=== PATIENT | female | born 1955 | race Caucasian/White ===

== ENCOUNTER 2017-03-08 10:58 | Inpatient (IN) | payer BC ==
--- NOTE | ~2017-03-08 | OP ---
Record Of Operation [facility] [address] [place]. [address] NAME: GIOVANI SANCHEZ : 57 STATUS : ADM IN [facility]#: [id number] AGE: 61 ADM/REG DATE : 03/08/17 MR#: [id number] REPORT SERV DATE: 03/12/17 DICTATED BY: TONY ARAUJO DATE: 03/11/17 REPORT STATUS : Draft TRANSCRIBED BY: MODÁlvaro DATE: 03/11/17 DATE OF PROCEDURE: 03/11/2017 PROCEDURE: Placement of right-sided chest tube. REASON: Pneumothorax postop. The patient is already intubated and sedated. Arrow Pneumothorax Kit was used for placement of a PneumoDart. DESCRIPTION OF PROCEDURE: The right chest was prepped and draped in sterile fashion at the level of rib 5 to 6. The interspace was then prepped and draped in sterile fashion. Lidocaine 1% was used as a local anesthetic, both through the skin and the pleura. A small incision was made. The PneumoDart was then inserted into the pleural space with immediate escape of air. It was advanced without difficulty. It was then connected to a one-way Heimlich valve. The tube was sewn in place with 2-0 silk. The Heimlich valve was then connected to a Pleur-Evac. Sterile gauze was then placed over the PneumoDart and it was taped in place. Chest x-ray after the procedure showed good placement and evacuation of pneumothorax. /NILSA Tony Araujo M.D. / [id number] CC: Galindo Smith MD
--- NOTE | ~2017-03-08 | OP ---
Record Of Operation [facility] [address] [place]. [address] NAME: GIOVANI IBARRA : 57 STATUS : ADM IN [facility]#: [id number] AGE: 61 ADM/REG DATE : 03/08/17 MR#: [id number] REPORT SERV DATE: 03/09/17 DICTATED BY: TY CASTREJON JR. DATE: 03/09/17 REPORT STATUS : Draft TRANSCRIBED BY: MODÁlvaro DATE: 03/09/17 DATE OF PROCEDURE: 03/08/2017 CHIEF COMPLAINT: Right ureteral obstruction secondary to a large ovarian mass. POSTOPERATIVE DIAGNOSIS: Right ureteral obstruction secondary to a large ovarian mass. PROCEDURE PERFORMED: Cystoscopy, urethral dilation, right retrograde pyelogram, placement of double-J stent. COMPLICATIONS: None. CONSULTATIONS: None. ANESTHESIA: General with laryngeal mask airway. SPECIMENS: None. DRAINS: 6 x 28 cm double-J stent. ESTIMATED BLOOD LOSS: None. INDICATION: Mrs. Ibarra is a 61-year-old female, who presented to the emergency room yesterday with findings of a large pelvic mass and weight loss. She has noted on CT scan to have a significant right ureteral obstruction. She comes today for double-J stent placement in preparations for exploratory laparoscopy or laparotomy tomorrow and debulking of this presumed ovarian malignancy. PROCEDURE IN DETAIL: After the patient was identified and proper informed consent was obtained, she was taken to the operating room. General anesthesia was performed without complication using a laryngeal mask airway. She was then prepped and draped in normal sterile fashion in the lithotomy position. Cystoscopic examination of the urethra was impossible due to the small size of the urethral meatus. I used female sounds to dilate the urethra to 24-Indonesian and then placed a 22-Indonesian cystoscope without difficulties. The bladder mucosa was examined. She did have some compression defect from the mass on the dome of her bladder. However, I was able to identify the right ureteral orifice in its normal position. The retrograde pyelogram was performed which reveals a lateral course to the ureter, very lengthy area of compression all the way up above the pelvic inlet and then a very tortuous ureter above that with a dilated collecting system. The ureter did not show any areas of acute impingement, just global compression appears. I then advanced a guidewire through the open-ended catheter up to the renal pelvis and then using the open- ended catheter advanced it into the renal pelvis and exchanged the wire to a super-stiff wire attempting to straighten the ureter, so that we could use a shorter stent. The ureter did straighten to some degree, but then flipped back at placement of the stent. So, I decided at that point to put the longest stent available in the [place] line which was a 6 x 28 cm stent. This was deployed with a nice curl in the bladder as well as the renal Record Of [address] [address] NAME: GIOVANI IBARRA : 57 STATUS : ADM IN PAT#: [id number] AGE: 61 ADM/REG DATE : 03/08/17 MR#: [id number] REPORT SERV DATE: 03/09/17 DICTATED BY: TY CASTREJON JR. DATE: 03/09/17 REPORT STATUS : Draft TRANSCRIBED BY: MODL DATE: 03/09/17 pelvis and UPJ. The bladder was drained. The patient awakened in the operating room and transferred to the postanesthesia care unit in stable condition. LINDSEY/NILSA Ty Castrejon Jr., M.D. / [id number] CC: Galindo Smith Susan
--- NOTE | ~2017-03-08 | CN ---
Consultation Report [facility] [address] [place]. [address] NAME: GIOVANI SANCHEZ : 57 STATUS : ADM IN [facility]#: [id number] AGE: 61 ADM/REG DATE : 03/08/17 MR#: [id number] REPORT SERV DATE: 03/10/17 DICTATED BY: TONY ARAUJO DATE: 03/10/17 REPORT STATUS : Draft TRANSCRIBED BY: MODL DATE: 03/10/17 CONSULT DATE OF CONSULTATION: 03/10/2017 HISTORY OF PRESENT ILLNESS: This is a 61-year-old patient, I was asked to see by Dr. Nikolas Cisse, Anesthesiology for postop ICU and vent management. The patient was admitted to Dr. Reyna's service on 03/08/2017 after she presented with a chief complaint of nausea, unintentional weight loss, and early satiety. She also was noted to have bilateral lower extremity edema apparently. She was evaluated with CT scan of the abdomen and pelvis, and was found to have a large 20 cm complex pelvic mass with moderate ascites in addition to a right-sided hydronephrosis. She had a CA 125 level drawn, which was elevated at 1545. Dr. Reyna recommended exploratory laparotomy and then the possibility of postoperative chemo and/or radiation. Dr. Castrejon was also consulted because of the hydronephrosis and recommended placement of a J stent if possible during surgery. The patient was taken to the OR today and underwent exploratory laparotomy and is now status post TAHBSO, omentectomy and radical tumor debulking, small-bowel resection, cysto and stent placement. The patient had an estimated blood loss of a 1000 mL and required albumin at 1500 mL, 5 units of packed RBCs, 2 units of fresh frozen plasma, and 5 L of crystalloid. She returns to the MICU intubated. The case was discussed in detail with Dr. Cisse. The patient did have some mild episodes of hypotension where systolic was down to the 90s during the case and she did require Kannan-Synephrine on several times during the case, currently she is not on any pressors. We are asked to see her for vent and ICU management. The patient is allergic to Aleve to which she gets a rash. She is on Tylenol, Centrum, and Feosol at home. PAST MEDICAL HISTORY: Really unremarkable. There was no reported history of diabetes, hypertension, coronary artery disease, COPD. SURGICAL HISTORY: Non-existent. SOCIAL HISTORY: The patient does not smoke, drink, or use illicit drugs. She works currently as a high school guidance counselor. Lives at home with her family. FAMILY HISTORY: Significant for leukemia in a paternal uncle and paternal nephew. There has been no history of GI, , or breast malignancies in her family. REVIEW OF SYSTEMS: Currently cannot be obtained from the patient since she is orally intubated and sedated. PHYSICAL EXAMINATION: VITAL SIGNS: Her temperature initially was 96.6 axillary, now 97.2, heart rate was 82, A- line pressure was 126/64, O2 saturation was 99% on 100%, respiratory rate was 12 on a rate of 10. Full vent settings are tidal volume of 500, CMV of 10, PEEP of 5, FiO2 of 100%. Blood pressure by cuff is 130/84, by A-line 126/64. Consultation Report [address] [address] NAME: GIOVANI SANCHEZ : 57 STATUS : ADM IN [facility]#: [id number] AGE: 61 ADM/REG DATE : 03/08/17 MR#: [id number] REPORT SERV DATE: 03/10/17 DICTATED BY: TONY ARAUJO DATE: 03/10/17 REPORT STATUS : Draft TRANSCRIBED BY: NILSA DATE: 03/10/17 GENERAL: The patient appears pale. She is orally intubated. SKIN: The skin is cool to touch. She is not diaphoretic. She has a right subclavian central line and right radial A-line. Serra catheter is in place. NECK: Supple without JVD, lymphadenopathy, or thyromegaly. LUNGS: Lung exam is without wheezing and is decreased at the bases. CARDIAC: Reveals a regular rate and rhythm with no significant murmurs. ABDOMEN: Nondistended and has a laparotomy incision with scant drainage of serosanguineous fluid. There is a AKIL drain in place left para-incisional location with drainage of blood tinged fluid. She has a Serra catheter in place. No bowel sounds can be heard. No organosplenomegaly can be appreciated. EXTREMITIES: Notable to have bilateral edema to above the knee, right greater than left, at least 2+ pitting edema at the ankles. NEUROLOGIC: Somewhat limited secondary to the anesthesia and sedation. The patient does open her eyes and grossly her neurologic exam is nonfocal. Chest x-ray for placement of both the endotracheal tube and the central line show no evidence of pneumothorax and good placement of the endotracheal tube. There is no NG or OG tube present. Most current lab work shows a white cell count of 21,000, hemoglobin of 7.7, hematocrit of 22, platelet count of 153,000, 12 bands. INR this morning was 1.3. Electrolytes: Sodium 144; potassium 4.7; chloride 110; bicarbonate 27; BUN 11; creatinine 1.71, which is elevated from initial admission at which time it was 0.85; glucose 227; calcium is 7.6. Last hemoglobin was 8.8 with hematocrit of 26. Repeat gas is pending. Last gas we have is from 4:34 p.m. showed a pH 7.27, pCO2 of 50, PO2 of 279, bicarbonate of 20, base excess of -6.5, O2 saturation of 99%. ASSESSMENT AND PLAN: This is a 61-year-old patient, who presents with nausea, vomiting, unintentional weight loss, early satiety, found to have a large 20 cm pelvic mass more than likely ovarian cancer and is status post extensive abdominal and pelvic surgery with estimated blood loss of a 1000 mL and massive IV fluid and blood product resuscitation. Currently, the patient is hemodynamically stable and does not require any pressors. We will follow her H and H closely since she does have chronic anemia and now anemia secondary to blood loss. We will also check a PT/INR as well and give fresh frozen plasma if needed. The patient currently is not ready for extubation given her large amount of blood loss and fluid requirement. There was also concern about acute kidney injury and notably she also had a stent placed for right-sided hydronephrosis secondary to her tumor. We will follow her creatinine closely. The patient will be on electrolyte replacement protocol for now. She does have potassium in her IV fluids, this will be discontinued from the IV fluids and the patient will be placed on electrolyte replacement protocol. She has notable left lower extremity edema given her history of ovarian cancer. I will order lower extremity Dopplers to rule out deep venous thrombosis for the morning. The patient is in guarded condition. Total of 45 minutes of critical care time was spent with this patient, commenced at 7:30 p.m. and ended at 8:15 p.m. She needs frequent hemodynamic monitoring as well as vent Consultation Report [place] [address] [facility] [place] [address] NAME: GIOVANI SANCHEZ : 57 STATUS : ADM IN PAT#: [id number] AGE: 61 ADM/REG DATE : 03/08/17 MR#: [id number] REPORT SERV DATE: 03/10/17 DICTATED BY: TONY ARAUJO DATE: 03/10/17 REPORT STATUS : Draft TRANSCRIBED BY: NILSA DATE: 03/10/17 assessment and manipulation and is at risk for circulatory hepatic respiratory and renal failure. Frequent ventilatory manipulations are needed, hemodynamic assessment as well as assessment of complex metabolic derangements. We will follow the patient with you. /NILSA Tony Araujo M.D. / [id number] CC: Galindo Smith Susan
--- NOTE | ~2017-03-08 | CN ---
Consultation Report [place] [id number] [facility] [place]. [address] NAME: GIOVANI IBARRA : 57 STATUS : ADM IN [facility]#: [id number] AGE: 61 ADM/REG DATE : 03/08/17 MR#: [id number] REPORT SERV DATE: 03/08/17 DICTATED BY: TY CASTREJON JR. DATE: 03/08/17 REPORT STATUS : Draft TRANSCRIBED BY: MODL DATE: 03/08/17 CONSULTATION DATE OF CONSULTATION: 03/08/2017 LITERARY AGENT: Ty Castrejon M.D. CHIEF COMPLAINT: Nausea, weight loss, and right hydronephrosis. HISTORY OF PRESENT ILLNESS: Ms. Ibarra is a very pleasant 61-year-old female who presented to the emergency room with difficulties having nausea and weight loss over the past few months and generalized feeling of malaise. CT scan of the abdomen at the time of her admission reveals a large 20 cm pelvic mass along with right-sided hydroureteronephrosis and apparent ureteral obstruction on the right side. I was consulted by Dr. Reyna for evaluation of possible double-J stenting prior to treatment for this large mass which appears to be ovarian in origin. PAST MEDICAL HISTORY: Essentially negative. PAST SURGICAL HISTORY: Negative. FAMILY HISTORY: Noncontributory. SOCIAL HISTORY: She does not smoke cigarettes or use illicit drugs or drink alcohol to abusive levels. HOME MEDICATIONS: She takes no prescription medications. ALLERGIES: ALEVE. REVIEW OF SYSTEMS: 14-system review was performed, was essentially other than that stated above. Pertinent negatives include no headache, no blurry vision, no balance issues. She has no cough. No chest pain. She has no real abdominal pain other than the above-mentioned nausea, and she has no lower extremity edema. Voiding pattern has been normal. PHYSICAL EXAMINATION: VITAL SIGNS: She is afebrile. Vital signs are stable. GENERAL: She is a well-nourished well-developed female, in no acute distress. HEENT: Normocephalic and atraumatic. NECK: Symmetric. CHEST: Clear to auscultation bilaterally. HEART: Regular rate and rhythm. ABDOMEN: Soft, nondistended, but there is a palpable mass in the right lower quadrant Consultation Report [place] [id number] [facility]. [address] NAME: GIOVANI IBARRA : 57 STATUS : ADM IN PAT#: [id number] AGE: 61 ADM/REG DATE : 03/08/17 MR#: [id number] REPORT SERV DATE: 03/08/17 DICTATED BY: TY CASTREJON JR. DATE: 03/08/17 REPORT STATUS : Draft TRANSCRIBED BY: MODL DATE: 03/08/[address] scan findings. GENITOURINARY: Deferred today. LABORATORY DATA: Electrolytes: Potassium is low at 3.1, otherwise normal. BUN of 12, creatinine 0.89. Urinalysis: Negative. White blood cell count 16.7 with a hemoglobin of 8.4. CT scan was reviewed. CT scan shows again the large pelvic mass on the right side, Likely coming from ovarian origin. She has significant right-sided hydronephrosis with some ascites with numerous omental implants and soft tissue nodularity more on the right than the left. She also has what appears to be some enlarged lymph nodes present throughout the pelvis and along the aorta. ASSESSMENT: Right-sided hydronephrosis secondary to large pelvic mass on the right side. RECOMMENDATIONS: Ureteral drainage would be best with a double-J stent. We will plan on attempting that tomorrow. However, with this size mass, I did discuss the possibility of being unable to place a double-J stent and then being left with nephrostomy tube being her only option at that point. The patient and family's questions were answered to their satisfaction. I also discussed this line of thinking with Dr. Reyna. LINDSEY/NILSA Ty Castrejon Jr., M.D. / [id number] CC: Galindo Smith SUSAN
--- NOTE | ~2017-03-08 | OP ---
Record Of Operation [facility] [address] [place]. [address] NAME: GIOVANI SACNHEZ : 57 STATUS : ADM IN PAT#: [id number] AGE: 61 ADM/REG DATE : 03/08/17 MR#: [id number] REPORT SERV DATE: 03/11/17 DICTATED BY: CHAVEZ WOLFE DATE: 03/11/17 REPORT STATUS : Draft TRANSCRIBED BY: MODL DATE: 03/11/17 DATE OF PROCEDURE: 03/10/2017 PREOPERATIVE DIAGNOSIS: Pelvic mass, elevated CA 125. POSTOPERATIVE DIAGNOSIS: Poorly differentiated carcinoma. SURGEON: Chavez Wolfe M.D. PROCEDURE PERFORMED: Exploratory laparotomy with total abdominal hysterectomy, bilateral salpingo-oophorectomy, omentectomy, and extensive radical tumor debulking with pelvic [place]. [place] [address]. Small bowel resection with [id number] reanastomosis, CPT code 91534. Appendectomy, CPT code 29098. Cystoscopy with removal of right ureteral stent. ANESTHESIA: General. EBL: 1000 mL. CRYSTALLOID: 5000 mL. ALBUMIN: 1500 mL. PACKED RED BLOOD CELLS: 5 units. FFP: 2 units. URINE OUTPUT: 250 mL. DRAINS: Serra and left lower quadrant AKIL drain. FINDINGS: A large 20 cm tumor down in the pelvis totally obscuring all normal anatomy. There were multiple peritoneal implants on the bladder serosa, as well as a bilateral pelvic side wall serosa with gross tumor. The tumor itself was densely adherent to a portion of small bowel later requiring resection. There were tumor deposits on the right hemidiaphragm as well as Morison's pouch. The omentum was contracted and contained gross tumor along the transverse colon down into the splenic hilum. After the conclusion of the procedure, there was gross disease at the splenic hilum, but it was much smaller than a centimeter and that was the only residual area of gross disease. PATHOLOGY: Uterus, uterine cervix, adnexa, pelvic peritoneal, infragastric omentum, pelvic lymph nodes, right hemidiaphragm peritoneum, Morison's pouch peritoneum, and a portion of small bowel. COMPLICATIONS: None. Record Of Operation [facility] [address] [place]. [address] NAME: GIOVANI SANCHEZ : 57 STATUS : ADM IN PAT#: [id number] AGE: 61 ADM/REG DATE : 03/08/17 MR#: [id number] REPORT SERV DATE: 03/11/17 DICTATED BY: CHAVEZ WOLFE DATE: 03/11/17 REPORT STATUS : Draft TRANSCRIBED BY: NILSA DATE: 03/11/17 POSTOPERATIVE PLAN: Intubated to the medical ICU. PROCEDURE IN DETAIL: After informed consent was signed, the patient was taken to the operating room and placed in dorsal supine position where adequate general anesthesia was administered. She was then placed in dorsal lithotomy position in Julio Cesar stirru, and prepped and draped in usual fashion. A Serra catheter was placed. A midline incision was made with a scalpel and carried down to the fascia which was incised, muscle , posterior sheath entered sharply, and the incision extended inferiorly and superiorly. Prior to extending the incision, 4.5 L of ascites was drained from the abdomen and pelvis. The Bookwalter retractor apparatus was assembled and deployed. The falciform ligament was then transected with LigaSure device and taken down to the diaphragm. The liver was then mobilized and the peritoneum overlying the right hemidiaphragm was then stripped to include all areas of gross tumor. No obvious evidence of diaphragmatic injury was observed. The patient was placed in Trendelenburg and fluid was placed into the right upper quadrant and several Valsalvas were given by Anesthesia with no evidence of bubbles suggesting that no right hemidiaphragm injuries occurred. The liver was then mobilized further medially from the right to the left, and tumor overlying of Morison's pouch and Gerota's fascia was then removed using Bovie cautery. Attention was then turned to the omentum. The omentum was then taken off the transverse colon in the usual fashion using Bovie cautery. The lesser sac was then entered and the omentum was then taken off the greater curvature of the stomach using the LigaSure device. The omentum and the gross tumor was then followed down to the splenic hilum where the omentum was then transected with the LigaSure device. There was a minimal amount of tumor at the splenic hilum. I did not feel like it would offer the patient any significant benefit to perform a splenectomy at this point given the several millimeter size of the tumor at the hilum. Prior to doing the upper abdominal portion of the procedure, the pelvic mass was removed. Specifically, the left pelvic sidewall peritoneum was incised and taken down lateral and parallel to the infundibulopelvic ligaments. Both ureters were identified and placed on vessel loop, and bilateral ureterolysis was performed down to the insertion into the bladder. The right ureter had been stented the day before by Urology due to right hydronephrosis with extrinsic compression by the mass. There was indeed noted to be extrinsic compression on the ureter by this mass on the right side. The both infundibulopelvic ligaments were identified, doubly clamped, transected, and doubly tied with 0 Vicryl suture. Next, the bladder was taken down off the anterior surface of the cervix. A finger was placed in the vagina and the anterior fornix was identified and an anterior colpotomy was made. There was a severe anatomic distortion of all pelvic contents from this mass. There was noted to be multiple loops of small bowel adherent to the mass, which most of these were taken down very easily, but one loop had mass adherent to it and part of the mass came off with the small bowel. The mass itself was then mobilized and a retrograde hysterectomy was performed where clamps were placed in a retrograde fashion just beneath the cervix circumferentially around the vagina. These pedicles were then cut, tied with 0 Vicryl suture until the uterus had been amputated along with the mass. The mass was sent for frozen section, which was consistent with cancer, high-grade malignancy. The mass itself seemed to be emanating from the right uterine cornua, but there was no identifiable normal ovary on either side. Next, the vagina was then closed with a 0 Vicryl suture with [id number]-vp-yesod stitches. The pelvis was irrigated with copious amounts of irrigation fluid. There were multiple areas of bleeding which were controlled using suture ligatures. Next, a pelvic lymph node dissection was Record Of Operation [address] [address] NAME: GIOVANI SANCHEZ : 57 STATUS : ADM IN PAT#: [id number] AGE: 61 ADM/REG DATE : 03/08/17 MR#: [id number] REPORT SERV DATE: 03/11/17 DICTATED BY: CHAVEZ WOLFE DATE: 03/11/17 REPORT STATUS : Draft TRANSCRIBED BY: MODL DATE: 03/11/17 performed. Specifically, lymphatic sampling from the external iliac, hypogastric, and obturator spaces was performed. Next, extensive peritoneal stripping in the pelvis was performed to remove gross areas of tumor deposits. This was sent for permanent pathology. Next, the area of small bowel that contained gross tumor was isolated. A rent was made in the mesentery just beneath the bowel wall, proximal and distal to the area of gross tumor. GI jose were fired across these areas and intervening mesentery was then taken with the LigaSure device. The antimesenteric borders of the afferent and efferent loops of small bowel were then sutured together. The corners of the staple line were then transected. The one arm of the CAITLYN stapler was placed down each loop of small intestine and the CAITLYN stapler was then fired creating the anastomosis. The another CAITLYN stapler was then fired across the top of the staple line thus completing the anastomosis. The staple line was then reinforced with 3-0 PDS suture with an imbricating stitch. There was a greater than 2 finger breadth anastomosis noted following completion. The mesentery was then closed with 2-0 Vicryl suture with a running stitch to prevent internal hernia. The pelvis and upper abdomen were irrigated with copious amounts of irrigation fluid. Excellent hemostasis was noted. The only residual site of tumor was the splenic hilum. A separate stab incision was made in the left lower quadrant with a scalpel and a #10 flat AKIL drain was then brought into the pelvis and sutured in place to the skin with 2-0 nylon suture. The Bookwalter retractor apparatus was disassembled, and the abdomen was closed with #1 looped PDS x2, and the skin was closed with 4-0 Monocryl and Dermabond. The patient tolerated the procedure well. She was on pressors intermittently during the case, but no significant amount of blood pressure support was needed. She was sent to the medical ICU in stable condition. FREDO/NILSA Chavez Wolfe MD / [id number] CC: Galindo Smith Susan
--- NOTE | ~2017-03-08 | DS ---
Discharge Summary [place] [address] [facility] [place]. [address] NAME: GIOVANI SANCHEZ : 57 STATUS : DIS IN PAT#: [id number] AGE: 61 ADM/REG DATE : 03/08/17 MR#: [id number] REPORT SERV DATE: 04/23/17 DICTATED BY: JARROD BRAR DATE: 04/23/17 REPORT STATUS : Draft TRANSCRIBED BY: MODL DATE: 04/23/17 ADMISSION DATE: 03/08/2017 DISCHARGE DATE: 03/18/2017 ADMITTING DIAGNOSIS: Large ovarian mass and suspected ovarian carcinoma with right hydronephrosis and hydroureter. PRINCIPAL PROCEDURES: 1. Placement of ureteral stent with decompression of the ureter and kidney, management consultant was Dr. Ty Castrejon. 2. Exploratory laparotomy, total abdominal hysterectomy, bilateral salpingo-oophorectomy with radical tumor debulking with small-bowel resection and primary anastomosis with cystoscopy and removal of the ureteral catheter, surgeon is Dr. Wolfe. HOSPITAL COURSE: The patient was admitted and underwent two procedures as described above. Her postoperative course was significant for pneumothorax requiring a pigtail catheter. Her pneumothorax improved and she was discharged to home on 03/18/2017 with instructions to follow up at [facility]. DICTATED BY: Galindo Smith/NILSA Jarrod Brar M.D. / [id number] CC: Galindo Smith SUSAN
--- NOTE | ~2017-03-08 | CN ---
Consultation Report [facility] [address] [place]. [address] NAME: GIOVANI IBARRA : 57 STATUS : ADM IN PAT#: [id number] AGE: 61 ADM/REG DATE : 03/08/17 MR#: [id number] REPORT SERV DATE: 03/09/17 DICTATED BY: CHAVEZ WOLFE DATE: 03/09/17 REPORT STATUS : Draft TRANSCRIBED BY: MODL DATE: 03/09/17 CONSULTATION NOTE DATE OF CONSULTATION: 03/09/2017 REASON FOR CONSULTATION: Pelvic mass, elevated CA-125. HISTORY OF PRESENT ILLNESS: Ms Ibarra is a delightful 61-year-old female, who approximately one to one and a half months ago started having early satiety, unintentional 15 pounds weight loss, and abdominal swelling, and about a week ago started having bilateral lower extremity edema. She is currently working as a teacher and attributed much her symptoms to stress. She had a CT scan done which revealed a large 20 cm complex pelvic mass with moderate ascites. She also had numerous peritoneal implants with omental implants with tissue nodularity under the right and left hemidiaphragms. The mass in the pelvis was multilobular heterogeneous with soft tissue and cystic components. The uterus is normal in size. She has severe right-sided hydronephrosis and hydroureter down to the level of the mass. There is a mildly prominent 1.3 cm right external iliac lymph node with no other lymphadenopathy noted. She had a CA-125 drawn that was elevated at 1545. Her CEA was 5.8. Other abnormalities revealed a potassium of 3.1 that has been replaced, and hemoglobin of 8.4, and a white blood cell count of 16.7. PAST MEDICAL HISTORY: Negative. PAST SURGICAL HISTORY: Negative. SOCIAL HISTORY: Negative for tobacco, alcohol, or illicit drug use. FAMILY HISTORY: She has a paternal uncle and a paternal nephew, both with leukemia. No evidence of GI, , or breast malignancies in her family. GYNECOLOGIC HISTORY: She has never had a mammogram, Pap smear, or colonoscopy. ALLERGIES: ALEVE, SHE GETS A RASH. REVIEW OF SYSTEMS: Significant for early satiety, abdominal fullness, and bilateral lower extremity edema. Otherwise she has no shortness of breath. No chest pain. No vaginal bleeding. No pelvic pain. PHYSICAL EXAMINATION: VITAL SIGNS: Temperature is 98.5, pulse is 100, and blood pressure is 131/63. Her weight is 160 pounds. Her BMI is 24.3. She is 68 inches tall. HEENT: Normocephalic, atraumatic. HEART: Regular rate and rhythm. Consultation Report [place] [id number] [place]. [address] NAME: GIOVANI IBARRA : 57 STATUS : ADM IN PAT#: [id number] AGE: 61 ADM/REG DATE : 03/08/17 MR#: [id number] REPORT SERV DATE: 03/09/17 DICTATED BY: CHAVEZ WOLFE DATE: 03/09/17 REPORT STATUS : Draft TRANSCRIBED BY: NILSA DATE: 03/09/17 LUNGS: Clear to auscultation bilaterally. ABDOMEN: Distended with known ascites. No palpable organomegaly is appreciated, but due to the ascites, this is not surprising. EXTREMITIES: She has 2+ pitting edema in her bilateral lower extremities. PELVIC: Deferred. ASSESSMENT AND PLAN: Going forward, I explained the results of the CT scan as well as the elevated CA-125, and the fact that this likely represents an ovarian malignancy. Treatment options were discussed included a primary surgery followed by chemotherapy versus neoadjuvant chemotherapy should complete optimal cytoreductive surgery be unable to be accomplished. We will plan for exploratory laparotomy tomorrow with RAUL-BSO and attempt at cytoreductive procedure. Even if she cannot have all of her gross tumor removed, removal of the 20 cm abdominal mass on omentum would help with the fluid accumulation and symptom and relief, so this will be done regardless of the ability to completely cytoreduce the patient. She will have a right ureteral stent placed today by Urology. We will also give her a transfusion today due to her anemia at 8.4. Risks and benefits of the procedure were discussed in detail including bleeding, infection, injury to bowel, bladder, blood vessels, and ureters, the possibility of a second surgery, second hospitalization, and were discussed. Additional risks were discussed include pneumonia and thromboembolic disease. The patient had numerous appropriate questions, all of which were answered to her satisfaction. Thank you for allowing me to participate in care of this naomi patient. FREDO/NILSA Chavez Wolfe MD / [id number] CC: Galindo Smith
[2017-03-08 10:46] LABS: BASOPHILS 0.1 %; BASOPHILS ABSOLUTE 0.01 10/3/uL (0.0-0.16); EOSINOPHILS 0 %; ER CBC TAT 0 Hrs 00 Mins; HEMATOCRIT 27.7 % (36.0-48.0); HEMOGLOBIN 8.4 g/dL (12.0-16.0); IMMATURE GRANULOCYTES 0.4 %; IMMATURE GRANULOCYTES ABSOLUTE 0.07 10/3/uL (0.0-0.11); MEAN CORPUS HGB CONC 30.3 g/dL (32.0-36.0); MEAN CORPUSCULAR HEMOGLOB 23.5 pg (26.0-34.0); MEAN CORPUSCULAR VOLUME 77.4 fL (80-100); MEAN PLATELET VOLUME 8.1 fL (9.2-13.0); MONOCYTES 4.1 %; MONOCYTES ABSOLUTE 0.68 10/3/uL (0.21-1.20); NEUTROPHILS 89.4 %; PLATELET COUNT 404 10/3/uL (150-400); RBC DISTRIBUTION WIDTH 15.7 % (12.0-16.0); RED CELL COUNT 3.58 10/6/uL (4.0-5.6); WHITE BLOOD CELLS 16.7 10/3/uL (4.5-10.5)
[2017-03-08 10:49] LABS: ASCORBIC ACID (UR NOT ORDER) NEG (NEG); BILIRUBIN, URINE NEGATIVE (NEG); ER URINALYSIS TAT 0 Hrs 00 Mins; KETONE, URINE TRACE MG/DL (NEG); LEUKOCYTE ESTERASE(NOT OR NEG (NEG); NITRITE (URINE) NEG (NEG); WBC (NOT ORDERED) (RFLEX) < 1 (0-5)
[2017-03-08 10:49] LABS: MANUAL DIFF NO %
[~2017-03-08 10:58] MED LIST: CENTRUM PO; FEOSOL PO; T PO
[2017-03-08 11:10] LABS: A/G RATIO 0.5 (0.7-1.9); ALBUMIN 2.4 G/DL (3.5-5.0); ALKALINE PHOSPHATASE 103 U/L (45-117); BUN (BLOOD UREA NITROGEN) 12 MG/DL (6-23); CALCIUM, SERUM 10.9 MG/DL (8.5-10.4); CHLORIDE, SERUM 97 MMOL/L (96-112); CO2 (CARBON DIOXIDE) 29 MMOL/L (24-34); CREATININE 0.89 MG/DL (0.55-1.02); GFR AFRICAN AMERICAN 82 ML/MIN (>=60); GFR NON AFRICAN AMERICAN 70 ML/MIN (>=60); GLOBULIN 4.7 G/DL (2.5-4.1); GLUCOSE, SERUM 108 MG/DL (60-99); POTASSIUM, SERUM 3.1 MMOL/L (3.5-5.3); SGOT(AST) 27 U/L (5-40); SGPT(ALT) 12 U/L (5-65); SODIUM, SERUM 137 MMOL/L (135-148); TOTAL BILIRUBIN 0.3 MG/DL (0-1.2); TOTAL PROTEIN 7.1 G/DL (6.0-8.5)
[2017-03-08 11:12] LABS: LACTATE 1.5 MMOL/L (0.3-2.4)
[2017-03-08 17:33] LABS: CA 125 II 1545.2 U/ML (< 35.0)
[2017-03-08 17:34] LABS: CEA 5.8 NG/ML
[2017-03-09 11:35] LABS: HEMATOCRIT 27.1 % (36.0-48.0); HEMOGLOBIN 8.2 g/dL (12.0-16.0)
[2017-03-10 05:49] LABS: BASOPHILS 0.1 %; BASOPHILS ABSOLUTE 0.01 10/3/uL (0.0-0.16); EOSINOPHILS 0 %; IMMATURE GRANULOCYTES 0.5 %; IMMATURE GRANULOCYTES ABSOLUTE 0.09 10/3/uL (0.0-0.11); LYMPHOCYTES 4.6 %; LYMPHOCYTES ABSOLUTE 0.81 10/3/uL (0.67-4.30); MEAN CORPUS HGB CONC 31.8 g/dL (32.0-36.0); MEAN CORPUSCULAR HEMOGLOB 25.4 pg (26.0-34.0); MEAN PLATELET VOLUME 8.3 fL (9.2-13.0); MONOCYTES 4.5 %; MONOCYTES ABSOLUTE 0.79 10/3/uL (0.21-1.20); NEUTROPHILS 90.3 %; NEUTROPHILS ABSOLUTE 15.88 10/3/uL (2.02-8.40); PLATELET COUNT 319 10/3/uL (150-400); RBC DISTRIBUTION WIDTH 15.6 % (12.0-16.0); RED CELL COUNT 3.98 10/6/uL (4.0-5.6); WHITE BLOOD CELLS 17.6 10/3/uL (4.5-10.5)
[2017-03-10 05:50] LABS: HEMATOCRIT 31.8 % (36.0-48.0); HEMOGLOBIN 10.1 g/dL (12.0-16.0); MEAN CORPUSCULAR VOLUME 79.9 fL (80-100)
[2017-03-10 05:51] LABS: MANUAL DIFF NO %
[2017-03-10 05:59] LABS: INTERNATIONAL NORMAL RATI 1.3 UNITS (-); PARTIAL THROMBO TIME 35.4 SEC (22.5-37.2); PROTIME (NOT ORD) 15.7 SEC (12.0-14.5)
[2017-03-10 06:00] LABS: BUN (BLOOD UREA NITROGEN) 11 MG/DL (6-23); CHLORIDE, SERUM 108 MMOL/L (96-112); CO2 (CARBON DIOXIDE) 30 MMOL/L (24-34); CREATININE 0.85 MG/DL (0.55-1.02); GFR AFRICAN AMERICAN 86 ML/MIN (>=60); GFR NON AFRICAN AMERICAN 74 ML/MIN (>=60); GLUCOSE, SERUM 118 MG/DL (60-99); POTASSIUM, SERUM 4.3 MMOL/L (3.5-5.3); SODIUM, SERUM 142 MMOL/L (135-148)
[2017-03-10 06:01] LABS: CALCIUM, SERUM 9.9 MG/DL (8.5-10.4)
[2017-03-10 15:51] LABS: HEMATOCRIT 32.7 % (36.0-48.0); HEMOGLOBIN 10.7 g/dL (12.0-16.0)
[2017-03-10 16:40] LABS: BE (BASE EXCESS) -6.5 MEQ/L (0 +/- 2.5); CARBOXYHEMOGLOBIN 0.3 % (0-3); HCO3 (ACTUAL BICARBONATE) 20.9 MEQ/L (23-27); HEMOBLOGIN CONTENT 11.3 G/DL (12-16); INSTRUMENT SERIAL # 11843; METHEMOGLOBIN 0.6 % (0-3); O2 CONTENT 16.2 VOL% (18-24); OPERATOR ID 32214; PCO2 (CO2 TENSION) 50 MMHG (35-45); PO2 (O2 TENSION) 279 MMHG (79-93); SAMPLE Arterial; pH 7.24 (7.37-7.43)
[2017-03-10 17:07] LABS: HEMOGLOBIN 8.8 g/dL (12.0-16.0)
[2017-03-10 17:08] LABS: HEMATOCRIT 26.2 % (36.0-48.0)
[2017-03-10 19:10] LABS: HEMOGLOBIN 7.7 g/dL (12.0-16.0); MEAN PLATELET VOLUME 8.3 fL (9.2-13.0); RBC DISTRIBUTION WIDTH 14.7 % (12.0-16.0); WHITE BLOOD CELLS 21.1 10/3/uL (4.5-10.5)
[2017-03-10 19:13] LABS: HEMATOCRIT 22.4 % (36.0-48.0); MANUAL DIFF YES %; MEAN CORPUS HGB CONC 34.4 g/dL (32.0-36.0); MEAN CORPUSCULAR HEMOGLOB 28.7 pg (26.0-34.0); MEAN CORPUSCULAR VOLUME 83.6 fL (80-100); PLATELET COUNT 153 10/3/uL (150-400); RED CELL COUNT 2.68 10/6/uL (4.0-5.6)
[2017-03-10 19:22] LABS: BUN (BLOOD UREA NITROGEN) 11 MG/DL (6-23); CHLORIDE, SERUM 110 MMOL/L (96-112); CO2 (CARBON DIOXIDE) 27 MMOL/L (24-34); POTASSIUM, SERUM 4.7 MMOL/L (3.5-5.3); SODIUM, SERUM 144 MMOL/L (135-148)
[2017-03-10 19:24] LABS: CALCIUM, SERUM 7.6 MG/DL (8.5-10.4); CREATININE 1.71 MG/DL (0.55-1.02); GFR AFRICAN AMERICAN 37 ML/MIN (>=60); GFR NON AFRICAN AMERICAN 32 ML/MIN (>=60); GLUCOSE, SERUM 227 MG/DL (60-99)
[2017-03-10 19:29] LABS: BAND NEUTROPHILS 12 %; LYMPHOCYTES 4 %; LYMPHOCYTES ABSOLUTE (CALC) 0.84 10/3/uL (0.67-4.30); MONOCYTES 1 %; MONOCYTES ABSOLUTE (CALC) 0.21 10/3/uL (0.21-1.20); NEUTROPHILS ABSOLUTE (CALC) 20.05 10/3/uL (2.02-8.40); SEGMENTED NEUTROPHIL (0) 83 %; TOTAL NUCLEATED CELLS 100
[2017-03-10 19:30] LABS: PLATELET ESTIMATE ADQ (ADEQUATE)
[2017-03-10 20:42] LABS: BE (BASE EXCESS) 0.6 MEQ/L (0 +/- 2.5); CARBOXYHEMOGLOBIN 0.8 % (0-3); HCO3 (ACTUAL BICARBONATE) 25.3 MEQ/L (23-27); INSTRUMENT SERIAL # 8083; METHEMOGLOBIN 0.3 % (0-3); MODE CMV; O2 CONTENT 12.1 VOL% (18-24); OPERATOR ID 31061; PCO2 (CO2 TENSION) 41 MMHG (35-45); PO2 (O2 TENSION) 380 MMHG (79-93); SAMPLE Arterial; TIDAL VOLUME 500 ML; pH 7.41 (7.37-7.43)
[2017-03-10 21:58] LABS: HEMATOCRIT 20.4 % (36.0-48.0); HEMOGLOBIN 7.1 g/dL (12.0-16.0); MEAN CORPUS HGB CONC 34.8 g/dL (32.0-36.0); MEAN CORPUSCULAR HEMOGLOB 28.9 pg (26.0-34.0); MEAN CORPUSCULAR VOLUME 82.9 fL (80-100); MEAN PLATELET VOLUME 8.4 fL (9.2-13.0); PLATELET COUNT 152 10/3/uL (150-400); RBC DISTRIBUTION WIDTH 14.6 % (12.0-16.0); RED CELL COUNT 2.46 10/6/uL (4.0-5.6); WHITE BLOOD CELLS 21.3 10/3/uL (4.5-10.5)
[2017-03-10 22:00] LABS: MANUAL DIFF YES %
[2017-03-10 22:04] LABS: INTERNATIONAL NORMAL RATI 1.5 UNITS (-); PARTIAL THROMBO TIME 33.4 SEC (22.5-37.2)
[2017-03-10 22:05] LABS: PROTIME (NOT ORD) 18.1 SEC (12.0-14.5)
[2017-03-10 22:17] LABS: BUN (BLOOD UREA NITROGEN) 13 MG/DL (6-23); CALCIUM, SERUM 7.5 MG/DL (8.5-10.4); CHLORIDE, SERUM 111 MMOL/L (96-112); CO2 (CARBON DIOXIDE) 28 MMOL/L (24-34); GFR AFRICAN AMERICAN 52 ML/MIN (>=60); GFR NON AFRICAN AMERICAN 45 ML/MIN (>=60); GLUCOSE, SERUM 209 MG/DL (60-99); PHOSPHORUS, SERUM 4.1 MG/DL (2.5-4.5); POTASSIUM, SERUM 4.7 MMOL/L (3.5-5.3); SODIUM, SERUM 144 MMOL/L (135-148)
[2017-03-10 22:18] LABS: BAND NEUTROPHILS 10 %; LYMPHOCYTES 3 %; LYMPHOCYTES ABSOLUTE (CALC) 0.64 10/3/uL (0.67-4.30); MONOCYTES 1 %; MONOCYTES ABSOLUTE (CALC) 0.21 10/3/uL (0.21-1.20); NEUTROPHILS ABSOLUTE (CALC) 20.45 10/3/uL (2.02-8.40); PLATELET ESTIMATE ADQ (ADEQUATE); SEGMENTED NEUTROPHIL (0) 86 %; TOTAL NUCLEATED CELLS 100
[2017-03-11 01:58] LABS: HEMOGLOBIN 7.1 g/dL (12.0-16.0)
[2017-03-11 01:59] LABS: HEMATOCRIT 20.1 % (36.0-48.0)
[2017-03-11 03:50] LABS: BE (BASE EXCESS) -2.9 MEQ/L (0 +/- 2.5); CARBOXYHEMOGLOBIN 1.9 % (0-3); HCO3 (ACTUAL BICARBONATE) 22.2 MEQ/L (23-27); HEMOBLOGIN CONTENT 7.5 G/DL (12-16); INSTRUMENT SERIAL # 8083; METHEMOGLOBIN 0.3 % (0-3); MODE CMV; O2 CONTENT 10.3 VOL% (18-24); OPERATOR ID 23712; PCO2 (CO2 TENSION) 40 MMHG (35-45); PO2 (O2 TENSION) 107 MMHG (79-93); SAMPLE Arterial; TIDAL VOLUME 500 ML; pH 7.37 (7.37-7.43)
[2017-03-11 04:25] LABS: HEMOGLOBIN 8.2 g/dL (12.0-16.0); MEAN CORPUS HGB CONC 34.2 g/dL (32.0-36.0); MEAN CORPUSCULAR HEMOGLOB 28.9 pg (26.0-34.0); MEAN CORPUSCULAR VOLUME 84.5 fL (80-100); MEAN PLATELET VOLUME 8.6 fL (9.2-13.0); PLATELET COUNT 163 10/3/uL (150-400); RBC DISTRIBUTION WIDTH 14.4 % (12.0-16.0); RED CELL COUNT 2.84 10/6/uL (4.0-5.6); WHITE BLOOD CELLS 13.5 10/3/uL (4.5-10.5)
[2017-03-11 04:26] LABS: MANUAL DIFF YES %
[2017-03-11 04:39] LABS: BUN (BLOOD UREA NITROGEN) 13 MG/DL (6-23); CHLORIDE, SERUM 113 MMOL/L (96-112); CO2 (CARBON DIOXIDE) 24 MMOL/L (24-34); CREATININE 1.38 MG/DL (0.55-1.02); GFR AFRICAN AMERICAN 48 ML/MIN (>=60); GFR NON AFRICAN AMERICAN 41 ML/MIN (>=60); POTASSIUM, SERUM 4.7 MMOL/L (3.5-5.3); SODIUM, SERUM 144 MMOL/L (135-148)
[2017-03-11 04:40] LABS: CALCIUM, SERUM 6.7 MG/DL (8.5-10.4); GLUCOSE, SERUM 146 MG/DL (60-99)
[2017-03-11 04:50] LABS: BAND NEUTROPHILS 11 %; LYMPHOCYTES 1 %; LYMPHOCYTES ABSOLUTE (CALC) 0.14 10/3/uL (0.67-4.30); MONOCYTES 2 %; MONOCYTES ABSOLUTE (CALC) 0.27 10/3/uL (0.21-1.20); SEGMENTED NEUTROPHIL (0) 86 %; TOTAL NUCLEATED CELLS 100
[2017-03-11 04:51] LABS: PLATELET ESTIMATE ADQ (ADEQUATE)
[2017-03-11 04:52] LABS: RBC MORPHOLOGY NORM (NORMAL)
[2017-03-11 09:27] LABS: BASOPHILS 0 %; EOSINOPHILS 0 %; HEMATOCRIT 24.4 % (36.0-48.0); HEMOGLOBIN 8.6 g/dL (12.0-16.0); IMMATURE GRANULOCYTES 0.9 %; IMMATURE GRANULOCYTES ABSOLUTE 0.13 10/3/uL (0.0-0.11); LYMPHOCYTES 7.7 %; LYMPHOCYTES ABSOLUTE 1.09 10/3/uL (0.67-4.30); MEAN CORPUS HGB CONC 35.2 g/dL (32.0-36.0); MEAN CORPUSCULAR HEMOGLOB 29.6 pg (26.0-34.0); MEAN CORPUSCULAR VOLUME 83.8 fL (80-100); MEAN PLATELET VOLUME 8.7 fL (9.2-13.0); MONOCYTES 6.6 %; MONOCYTES ABSOLUTE 0.93 10/3/uL (0.21-1.20); NEUTROPHILS 84.8 %; NEUTROPHILS ABSOLUTE 11.99 10/3/uL (2.02-8.40); PLATELET COUNT 167 10/3/uL (150-400); RBC DISTRIBUTION WIDTH 14.8 % (12.0-16.0); RED CELL COUNT 2.91 10/6/uL (4.0-5.6); WHITE BLOOD CELLS 14.1 10/3/uL (4.5-10.5)
[2017-03-11 09:29] LABS: MANUAL DIFF NO %
[2017-03-11 09:42] LABS: POTASSIUM, SERUM 4.5 MMOL/L (3.5-5.3)
[2017-03-11 16:50] LABS: BASOPHILS 0.1 %; BASOPHILS ABSOLUTE 0.01 10/3/uL (0.0-0.16); EOSINOPHILS 0.1 %; EOSINOPHILS ABSOLUTE 0.01 10/3/uL (0.0-0.53); HEMATOCRIT 25.9 % (36.0-48.0); IMMATURE GRANULOCYTES 0.9 %; IMMATURE GRANULOCYTES ABSOLUTE 0.16 10/3/uL (0.0-0.11); LYMPHOCYTES 6.4 %; LYMPHOCYTES ABSOLUTE 1.15 10/3/uL (0.67-4.30); MEAN CORPUS HGB CONC 34.7 g/dL (32.0-36.0); MEAN CORPUSCULAR HEMOGLOB 29.2 pg (26.0-34.0); MEAN CORPUSCULAR VOLUME 84.1 fL (80-100); MEAN PLATELET VOLUME 8.8 fL (9.2-13.0); MONOCYTES ABSOLUTE 1.08 10/3/uL (0.21-1.20); NEUTROPHILS 86.5 %; NEUTROPHILS ABSOLUTE 15.53 10/3/uL (2.02-8.40); RBC DISTRIBUTION WIDTH 15.2 % (12.0-16.0); RED CELL COUNT 3.08 10/6/uL (4.0-5.6); WHITE BLOOD CELLS 17.9 10/3/uL (4.5-10.5)
[2017-03-11 16:53] LABS: MANUAL DIFF NO %; PLATELET COUNT 227 10/3/uL (150-400)
[2017-03-11 16:56] LABS: ALBUMIN 2.2 G/DL (3.5-5.0); BUN (BLOOD UREA NITROGEN) 13 MG/DL (6-23); CALCIUM, SERUM 7.6 MG/DL (8.5-10.4); CHLORIDE, SERUM 114 MMOL/L (96-112); CO2 (CARBON DIOXIDE) 22 MMOL/L (24-34); GFR AFRICAN AMERICAN 63 ML/MIN (>=60); GFR NON AFRICAN AMERICAN 55 ML/MIN (>=60); GLUCOSE, SERUM 118 MG/DL (60-99); PHOSPHORUS, SERUM 3.2 MG/DL (2.5-4.5); POTASSIUM, SERUM 4.4 MMOL/L (3.5-5.3); SODIUM, SERUM 144 MMOL/L (135-148)
[2017-03-11 16:58] LABS: INTERNATIONAL NORMAL RATI 1.3 UNITS (-); PROTIME (NOT ORD) 16.1 SEC (12.0-14.5)
[2017-03-11 16:59] LABS: PARTIAL THROMBO TIME 32.2 SEC (22.5-37.2)
[2017-03-12 01:10] LABS: HEMATOCRIT 24.7 % (36.0-48.0); HEMOGLOBIN 8.4 g/dL (12.0-16.0)
[2017-03-12 05:59] LABS: BASOPHILS 0.1 %; BASOPHILS ABSOLUTE 0.01 10/3/uL (0.0-0.16); EOSINOPHILS 0.6 %; EOSINOPHILS ABSOLUTE 0.08 10/3/uL (0.0-0.53); HEMATOCRIT 22.6 % (36.0-48.0); HEMOGLOBIN 7.6 g/dL (12.0-16.0); IMMATURE GRANULOCYTES 0.9 %; IMMATURE GRANULOCYTES ABSOLUTE 0.13 10/3/uL (0.0-0.11); LYMPHOCYTES 6.6 %; LYMPHOCYTES ABSOLUTE 0.93 10/3/uL (0.67-4.30); MEAN CORPUS HGB CONC 33.6 g/dL (32.0-36.0); MEAN CORPUSCULAR HEMOGLOB 28.7 pg (26.0-34.0); MEAN CORPUSCULAR VOLUME 85.3 fL (80-100); MEAN PLATELET VOLUME 8.3 fL (9.2-13.0); MONOCYTES 6.9 %; MONOCYTES ABSOLUTE 0.97 10/3/uL (0.21-1.20); NEUTROPHILS 84.9 %; NEUTROPHILS ABSOLUTE 11.95 10/3/uL (2.02-8.40); PLATELET COUNT 205 10/3/uL (150-400); RBC DISTRIBUTION WIDTH 15.6 % (12.0-16.0); RED CELL COUNT 2.65 10/6/uL (4.0-5.6); WHITE BLOOD CELLS 14.1 10/3/uL (4.5-10.5)
[2017-03-12 06:00] LABS: MANUAL DIFF NO %
[2017-03-12 06:11] LABS: BUN (BLOOD UREA NITROGEN) 12 MG/DL (6-23); CALCIUM, SERUM 5.3 MG/DL (8.5-10.4); CHLORIDE, SERUM 116 MMOL/L (96-112); CO2 (CARBON DIOXIDE) 21 MMOL/L (24-34); CREATININE 0.62 MG/DL (0.55-1.02); GFR AFRICAN AMERICAN 114 ML/MIN (>=60); GFR NON AFRICAN AMERICAN 98 ML/MIN (>=60); GLUCOSE, SERUM 113 MG/DL (60-99); PHOSPHORUS, SERUM 2.1 MG/DL (2.5-4.5); POTASSIUM, SERUM 4.3 MMOL/L (3.5-5.3); SODIUM, SERUM 145 MMOL/L (135-148)
[2017-03-12 16:56] LABS: HEMATOCRIT 24.5 % (36.0-48.0); HEMOGLOBIN 8.4 g/dL (12.0-16.0)
[2017-03-13 04:46] LABS: BASOPHILS 0 %; EOSINOPHILS ABSOLUTE 0.15 10/3/uL (0.0-0.53); HEMATOCRIT 24.4 % (36.0-48.0); HEMOGLOBIN 8.4 g/dL (12.0-16.0); IMMATURE GRANULOCYTES 1.3 %; LYMPHOCYTES 7.1 %; LYMPHOCYTES ABSOLUTE 1.06 10/3/uL (0.67-4.30); MEAN CORPUS HGB CONC 34.4 g/dL (32.0-36.0); MEAN CORPUSCULAR HEMOGLOB 29.5 pg (26.0-34.0); MEAN CORPUSCULAR VOLUME 85.6 fL (80-100); MEAN PLATELET VOLUME 8.4 fL (9.2-13.0); MONOCYTES 5.4 %; MONOCYTES ABSOLUTE 0.81 10/3/uL (0.21-1.20); NEUTROPHILS 85.2 %; NEUTROPHILS ABSOLUTE 12.76 10/3/uL (2.02-8.40); PLATELET COUNT 254 10/3/uL (150-400); RBC DISTRIBUTION WIDTH 15.8 % (12.0-16.0); RED CELL COUNT 2.85 10/6/uL (4.0-5.6)
[2017-03-13 04:47] LABS: MANUAL DIFF NO %
[2017-03-13 05:02] LABS: BUN (BLOOD UREA NITROGEN) 6 MG/DL (6-23); CALCIUM, SERUM 7.5 MG/DL (8.5-10.4); CHLORIDE, SERUM 106 MMOL/L (96-112); CO2 (CARBON DIOXIDE) 27 MMOL/L (24-34); CREATININE 0.53 MG/DL (0.55-1.02); GFR AFRICAN AMERICAN 120 ML/MIN (>=60); GFR NON AFRICAN AMERICAN 103 ML/MIN (>=60); GLUCOSE, SERUM 99 MG/DL (60-99); PHOSPHORUS, SERUM 1.8 MG/DL (2.5-4.5); POTASSIUM, SERUM 3.5 MMOL/L (3.5-5.3); SODIUM, SERUM 140 MMOL/L (135-148)
[2017-03-14 04:23] LABS: BASOPHILS 0.1 %; BASOPHILS ABSOLUTE 0.01 10/3/uL (0.0-0.16); EOSINOPHILS 1.4 %; EOSINOPHILS ABSOLUTE 0.16 10/3/uL (0.0-0.53); HEMATOCRIT 24.8 % (36.0-48.0); HEMOGLOBIN 8.4 g/dL (12.0-16.0); IMMATURE GRANULOCYTES 1.8 %; IMMATURE GRANULOCYTES ABSOLUTE 0.21 10/3/uL (0.0-0.11); LYMPHOCYTES 10.3 %; LYMPHOCYTES ABSOLUTE 1.19 10/3/uL (0.67-4.30); MEAN CORPUS HGB CONC 33.9 g/dL (32.0-36.0); MEAN CORPUSCULAR HEMOGLOB 29.4 pg (26.0-34.0); MEAN CORPUSCULAR VOLUME 86.7 fL (80-100); MEAN PLATELET VOLUME 8.5 fL (9.2-13.0); MONOCYTES 5.8 %; MONOCYTES ABSOLUTE 0.67 10/3/uL (0.21-1.20); NEUTROPHILS 80.6 %; NEUTROPHILS ABSOLUTE 9.28 10/3/uL (2.02-8.40); PLATELET COUNT 323 10/3/uL (150-400); RBC DISTRIBUTION WIDTH 15.9 % (12.0-16.0); RED CELL COUNT 2.86 10/6/uL (4.0-5.6); WHITE BLOOD CELLS 11.5 10/3/uL (4.5-10.5)
[2017-03-14 04:32] LABS: BUN (BLOOD UREA NITROGEN) 6 MG/DL (6-23); CALCIUM, SERUM 7.6 MG/DL (8.5-10.4); CHLORIDE, SERUM 104 MMOL/L (96-112); CO2 (CARBON DIOXIDE) 28 MMOL/L (24-34); GFR AFRICAN AMERICAN 122 ML/MIN (>=60); GFR NON AFRICAN AMERICAN 105 ML/MIN (>=60); GLUCOSE, SERUM 99 MG/DL (60-99); POTASSIUM, SERUM 3.3 MMOL/L (3.5-5.3); SODIUM, SERUM 140 MMOL/L (135-148)
[2017-03-14 04:33] LABS: MANUAL DIFF NO %; PHOSPHORUS, SERUM 2.5 MG/DL (2.5-4.5)
[2017-03-15 03:47] LABS: BASOPHILS 0 %; EOSINOPHILS ABSOLUTE 0.19 10/3/uL (0.0-0.53); HEMATOCRIT 24.7 % (36.0-48.0); HEMOGLOBIN 8.1 g/dL (12.0-16.0); IMMATURE GRANULOCYTES 1.7 %; IMMATURE GRANULOCYTES ABSOLUTE 0.16 10/3/uL (0.0-0.11); LYMPHOCYTES 14.5 %; LYMPHOCYTES ABSOLUTE 1.35 10/3/uL (0.67-4.30); MEAN CORPUS HGB CONC 32.8 g/dL (32.0-36.0); MEAN CORPUSCULAR HEMOGLOB 28.9 pg (26.0-34.0); MEAN CORPUSCULAR VOLUME 88.2 fL (80-100); MEAN PLATELET VOLUME 8.4 fL (9.2-13.0); MONOCYTES 6.3 %; MONOCYTES ABSOLUTE 0.58 10/3/uL (0.21-1.20); NEUTROPHILS 75.5 %; PLATELET COUNT 385 10/3/uL (150-400); WHITE BLOOD CELLS 9.3 10/3/uL (4.5-10.5)
[2017-03-15 03:49] LABS: MANUAL DIFF NO %
[2017-03-15 04:04] LABS: BUN (BLOOD UREA NITROGEN) 8 MG/DL (6-23); CALCIUM, SERUM 7.6 MG/DL (8.5-10.4); CHLORIDE, SERUM 105 MMOL/L (96-112); CO2 (CARBON DIOXIDE) 29 MMOL/L (24-34); CREATININE 0.46 MG/DL (0.55-1.02); GFR AFRICAN AMERICAN 125 ML/MIN (>=60); GFR NON AFRICAN AMERICAN 108 ML/MIN (>=60); GLUCOSE, SERUM 97 MG/DL (60-99); POTASSIUM, SERUM 3.2 MMOL/L (3.5-5.3); SODIUM, SERUM 143 MMOL/L (135-148)
[2017-03-18] MEDS ORDERED: LOVENOX80 SC (09:27)
[2017-03-18] MEDS ORDERED: COMP10B PO (09:29)
[2017-03-18] MEDS ORDERED: PCET PO (09:29)
== END 2017-03-18 15:23 | disposition home or self-care (01) | DRG 736 ==
LOC: ER 10:58 → 4EA 15:21 → MIC 03-10 18:39 → 5NO 03-16 12:04
PROVIDERS: Hospitalist; Internal Medicine Pulmonary Disease; Nurse Practitioner Family; Obstetrics & Gynecology Gynecologic Oncology; Obstetrics & Gynecology Gynecology; Urology
DX: C56.1 Malignant neoplasm of right ovary (principal); J95.821 Acute postprocedural respiratory failure; N17.9 Acute kidney failure, unspecified; C77.5 Secondary and unspecified malignant neoplasm of intrapelvic lymph nodes; N13.1 Hydronephrosis with ureteral stricture, not elsewhere classified; R18.8 Other ascites; I82.4Z2 Acute embolism and thrombosis of unspecified deep veins of left distal lower extremity; J95.811 Postprocedural pneumothorax; D62 Acute posthemorrhagic anemia
CPT/HCPCS: 31720; 32557; 36415; 71010; 74177; 74420; 80048; 80053; 80069; 81001; 82330; 82378; 82533; 82805; 82962; 83605; 83690; 83735; 84100; 84132; 84443; 85014; 85018; 85025; 85610; 85730; 86304; 86850; 86900; 86901; 86920; 87641; 88304; 88305; 88307; 88309; 88312; 88313; 88331; 88332; 88341; 88342; 88360; 93005; 93970; 94002; 94003; 94660; 99152; 99153; 99285; A9270-GY; C1751; C1758; C1769; C2617; J0610; J0694; J2250; J2370; J2405; J2550; J2710; J2795; J3010; J3475; J3480; P9016; P9045; P9047; P9059; Q9967